=== PATIENT | male | born 1990 | race Two or more races ===

== ENCOUNTER 2025-01-02 10:03 | Day surgery (SDC) | payer OTHER ==
[~2025-01-02] VITALS: Ht 157.5 cm; Wt 72.6 kg
[2025-01-02] MEDS ORDERED: fentaNYL CITRATE 5 ML ONE (10:17)
[2025-01-02] MEDS ORDERED: HYDROmorphone HCL 2 MG/ML VL/or syr ONE (10:17)
[2025-01-02] MEDS ORDERED: ceFAZolin 2 GM/D5W50ml 50 ML IV ONE (10:34)
[2025-01-02] MEDS ORDERED: ROPIVACAINE 0.5% (5MG/ML) 20ML AMPULE IJ ONE (11:49)
[2025-01-02] MEDS ORDERED: ONDANSETRON HCL 4 MG/2 ML VIAL ONE (12:19)
[2025-01-02] MEDS: BUPIVACAINE 0.5% P/F INJ 10 ML VIAL ONE (12:31)
[2025-01-02] MEDS ORDERED: PHENYLEPHRINE HCL 10 MG/ML VL ONE (12:31)
[2025-01-02 12:57] VITALS: PULSE 87; RESP 13; TEMP 97.5; O2SAT 99
--- NOTE | 2025-01-02 13:44 | DVH ---
C-ARM FLUOROSCOPY: PROCEDURE: Left ankle ORIF FLUOROSCOPY TIME: 46.1 sec DAP: 0.96 mgy FINDINGS: Spot intraoperative C arm radiographs demonstrating left ankle orif. IMPRESSION: Please refer to surgical report for detailed findings.
--- NOTE | 2025-01-02 13:44 | DVH ---
C-ARM FLUOROSCOPY: PROCEDURE: Left ankle ORIF FLUOROSCOPY TIME: 46.1 sec DAP: 0.96 mgy FINDINGS: Spot intraoperative C arm radiographs demonstrating left ankle orif. IMPRESSION: Please refer to surgical report for detailed findings.
[2025-01-02 14:12] VITALS: BP 129/80; PULSE 91; RESP 10; O2SAT 98
--- NOTE | 2025-01-04 09:16 | DVHOP2 ---
Operative Report - 2 Report Details Date: 01/02/25 Preop Diagnosis: Left trimallelar ankle fracture Postop Diagnosis: Left trimallelar ankle fracture Surgeon: Miguel A Rios MD Anesthesiologist: Maddi GABRIEL Anesthesia: General Implant: Bryce two hole plate with syndesmotic screw x 2 Ossio medial mal screw Consent: The patient was informed of the risks and benefits of the procedure. These include but are not limited to complications of anesthesia, postoperative infection, incomplete relief of symptoms, recurrence of symptoms, damage to blood vessels, nerves and tendons, deep venous thrombosis, pulmonary embolism and possible need for repeat surgery in the future. Estimated Blood Loss: 5 cc Name of Procedure Performed 1. Open reduction internal fixation of left trimalleolar equivalent ankle fracture without fixation of posterior mal 2. Intraop Fluoroscopy Procedure Details Procedure Details: Risks/benefits/options and alternatives were discussed in length. Risks associated with anesthesia, infection, damage to nerves and blood vessels, and bleeding or blood clots. Problems after ankle fracture surgery include ankle joint stiffness, weakness, need for further surgery and arthritis. Possible complications after ankle fracture surgery include infection and problems with healing. PROCEDURE: After all potential complications and risks as well as risks and benefits of the above-mentioned procedure was discussed at length with the patient and family, informed consent was obtained. The lower extremity was then confirmed with the operating surgeon, the patient, the nursing staff and Department of Anesthesia. The patient was then transferred to preoperative area in the Operative Suite and placed on the operating room table in supine position. At this time, the anesthesia was performed. All bony prominences were well padded at this time. A nonsterile tourniquet was placed on the left upper thigh of the patient. lower extremity was sterilely prepped and draped in the usual sterile fashion. Thelower extremity was then elevated and exsanguinated using Esmarch and tourniquet was then placed to 250 mmHg. Next, after all bony and soft tissue landmarks were identified, a 3 cm longitudinal incision was made directly over the lateral mal fracture on the right ankle. A sharp dissection was carefully taken down to the level of bone taking care to protect the neurovascular structures. Syndesmosis was appropriately clamped. 2 hole plate placed on fibula. Under correct tension and fluoro, two syndesmotic screws placed. Next Fluorsocpy was used to visualize the hardware placement as well as the fracture reduction appeared to be in good anatomic position, all hardware was in good position. There was no lateralization of the joints. Attention was then directed towards the medial aspect of the ankle. Again, after all bony and soft tissue landmarks were identified, a 1 cm longitudinal incision was made directly over the medial malleolus. Again, the dissection was carefully taken down the level of the fracture site. The medial malleolus was placed in reduced position and held in place with a 1.25 mm K-wire. Next, the 2.5 mm drill bed was then used to sequentially drill holes to full depth and 40 mm ossio screw placed. Again, Fluoro scan was brought in to confirm placement of the screws. They were in good overall position and there was no lateralization of the joint. At this time, each wound was copiously irrigated and suctioned dry. The wounds were then closed using #2-0 Vicryl suture in subcutaneous fashion followed by 3-0 nylon on the skin. A sterile dressing was applied consistent with Adaptic, 4x4s, Kerlix, and Webril. An ankle splint was then placed on the right lower extremity. [facility] and to the Postanest[facility] Care Unit. The patient tolerated the procedure well. There were no complications. Postoperative Plan: 1. Strictly Non-weight bearing Left LE 2. Pain control - [place] 3. Strict elevation x 2 weeks 4. Crutches 5. Healing time for this ankle fracture is about 3-6 months. Typically NWB for 6 weeks followed by Partial WB 6. Follow up in my office in 2 weeks Condition Good Disposition [facility] MIGUEL A RIOS MD Jan 04, 2025 09:16
== END 2025-01-02 14:25 | disposition home or self-care (01) ==
LOC: SUR 10:03
PROVIDERS: ATTEND Orthopaedic Surgery Adult Reconstructive Orthopaedic Surgery
DX: S82.852A Displaced trimalleolar fracture of left lower leg, initial encounter for closed fracture (principal); X58.XXXA Exposure to other specified factors, initial encounter; Y93.89 Activity, other specified; Y92.89 Other specified places as the place of occurrence of the external cause; Y99.8 Other external cause status; G89.18 Other acute postprocedural pain
CPT/HCPCS: 27822; 27829; 64447; 64450; 73600; 76000; C1713; C1769; J0690; J1100; J1171; J2371; J2405; J2795; J3010; J3490